=== PATIENT | female | born 1975 | race Caucasian/White ===

== ENCOUNTER 2020-04-11 22:07 | Inpatient (IN) | payer OTHER ==
[~2020-04-11] VITALS: Ht 162.6 cm; Wt 68.0 kg
[2020-04-11 22:12] VITALS: BP 97/58
[2020-04-11] MEDS ORDERED: PHENYTOIN SODI100 M3 PO (22:19)
[2020-04-11] MEDS ORDERED: PHENOBARBITAL60 MG PO (22:20)
[2020-04-11 22:34] LABS: ABSOLUTE NEUTROPHILS 10.7 thou/uL (1.4-8.2); BASOPHILS 0.4 % (0.0-2.0); EOSINOPHILS 1.5 % (0.0-3.0); HEMATOCRIT 40.6 % (37.0-47.0); HEMOGLOBIN 13.6 gm/dL (12.0-15.0); LYMPHOCYTES 17.8 % (24.0-44.0); MCH 30.7 pg (26.0-34.0); MCHC 33.4 g/dL (28.0-37.0); MCV 91.9 fL (80.0-100.0); PLATELET COUNT 324 thou/uL (150-400); POLYS 74.3 % (36.0-66.0); RBC 4.43 mil/uL (4.20-5.00); RDW 13.4 % (10.5-14.5); WBC 14.4 thou/uL (4.0-11.0)
[2020-04-11 22:36] LABS: CALCIUM 8.7 mg/dL (8.5-10.1); CREATININE 0.9 mg/dL (0.6-1.0); POTASSIUM 3.3 mmol/L (3.5-5.1)
[2020-04-12 01:49] VITALS: BP 101/55
[2020-04-12 02:05] VITALS: BP 99/58
[2020-04-12 07:50] VITALS: BP 105/67
[2020-04-12 16:06] VITALS: BP 100/62
[2020-04-12 19:43] VITALS: BP 118/72
[2020-04-12 19:47] VITALS: BP 100/55
[2020-04-13 04:00] VITALS: BP 116/64
[2020-04-13 07:40] VITALS: BP 102/72
[2020-04-13 12:33] VITALS: BP 102/72
== END 2020-04-13 13:14 | disposition left against medical advice (07) | DRG 552 ==
LOC: ER 22:07 → EROBS 04-12 01:36 → 4S 04-12 02:10
PROVIDERS: Emergency Medicine; ADMIT Surgery
DX: S32.039A Unspecified fracture of third lumbar vertebra, initial encounter for closed fracture (principal); W11.XXXA Fall on and from ladder, initial encounter; Y93.89 Activity, other specified; Z53.29 Procedure and treatment not carried out because of patient's decision for other reasons; Y92.89 Other specified places as the place of occurrence of the external cause; Y99.8 Other external cause status; F17.210 Nicotine dependence, cigarettes, uncomplicated; Z79.899 Other long term (current) drug therapy
CPT/HCPCS: 10195